=== PATIENT | male | born 1945 | race Caucasian/White ===

== ENCOUNTER 2022-07-02 06:30 | Day surgery (SDC) | payer MEDICARE, BC ==
[~2022-07-02 06:30] MED LIST: Acetaminophen 325 MG Tab PO SCH; Lactated Ringers 1,000 ML IV SCH; Lidocaine 1%/Sod Bicarbonate in NS 8.4% 1 ML Syringe IDERM PRN; Morphine 8 MG, EPINEPHrine 0.3 MG, Cefuroxime 750 MG, Ketorolac 30 MG, Sodium Chloride ... PRN; Pregabalin 25 MG Cap PO SCH; oxyCODONE ER 10 MG TAB.ER PO SCH
[2022-07-02] MEDS ORDERED: Tranexamic Acid 1,000 MG/10 ML Vial ONE (07:09)
[2022-07-02] MEDS ORDERED: Vancomycin 1 GM SDV ONE (07:09)
[2022-07-02] MEDS ORDERED: fentaNYL 100 MCG/2 ML SDV IVPUSH PRN (07:27)
[2022-07-02] MEDS ORDERED: Ondansetron 4 MG/2 ML SDV IVPUSH PRN (07:27)
[2022-07-02] MEDS ORDERED: Phenylephrine HCl In 0.9% NaCl 1 MG/10 ML Vial ONE (07:32)
[2022-07-02] MEDS ORDERED: Propofol 200 MG/20 ML SDV ONE (07:32)
[2022-07-02] MEDS ORDERED: Lidocaine 1% 2 ML ONE (07:32)
[2022-07-02] MEDS ORDERED: fentaNYL 100 MCG/2 ML SDV ONE (07:33)
[2022-07-02] MEDS ORDERED: Midazolam 1 MG/ML 2 ML SDV ONE (07:33)
[2022-07-02] MEDS ORDERED: ceFAZolin 2 GM Vial ONE (07:33)
[2022-07-02] MEDS ORDERED: EPINEPHrine 1 MG/ML SDV ONE (07:46)
[2022-07-02] MEDS ORDERED: Ropivacaine 0.5% 5 MG/ML 30 ML SDV ONE (07:46)
[2022-07-02] MEDS ORDERED: Sodium Chloride 0.9% 10 ML Syringe FLUSH SCH (09:00)
[2022-07-02] MEDS ORDERED: Acetaminophen/HYDROcodone 325-5 MG Tab PO SCH (11:40)
[2022-07-02 13:47] VITALS: BP 131/79; PULSE 73
== END 2022-07-02 13:29 | disposition home or self-care (01) ==
LOC: JD.SDS 06:30
PROVIDERS: ATTEND Orthopaedic Surgery
DX: M17.12 Unilateral primary osteoarthritis, left knee (principal); K21.9 Gastro-esophageal reflux disease without esophagitis; E78.5 Hyperlipidemia, unspecified; I11.0 Hypertensive heart disease with heart failure; I50.22 Chronic systolic (congestive) heart failure; I25.10 Atherosclerotic heart disease of native coronary artery without angina pectoris; E66.9 Obesity, unspecified; I25.2 Old myocardial infarction; Z79.899 Other long term (current) drug therapy; Z68.27 Body mass index [BMI] 27.0-27.9, adult; Z96.651 Presence of right artificial knee joint
CPT/HCPCS: 0055T; 27447; 64447; 73560; 97110; 97116; 97161; A9270; C1713; C1776; J0171; J0690; J0697; J1885; J2250; J2270; J2795; J3010; J3370; J7120; 01402; 64450; J2704; J3490

== ENCOUNTER 2023-03-21 05:50 | Day surgery (SDC) | payer MEDICARE, BC ==
[~2023-03-21 05:50] MED LIST changes: -Acetaminophen 325 MG Tab PO SCH; -Lidocaine 1%/Sod Bicarbonate in NS 8.4% 1 ML Syringe IDERM PRN; -Morphine 8 MG, EPINEPHrine 0.3 MG, Cefuroxime 750 MG, Ketorolac 30 MG, Sodium Chloride ... PRN; -Pregabalin 25 MG Cap PO SCH; +Sodium Chloride 0.9% 10 ML Syringe FLUSH PRN; +Sodium Chloride 0.9% 10 ML Syringe FLUSH SCH; -oxyCODONE ER 10 MG TAB.ER PO SCH
[2023-03-21] MEDS ORDERED: Bupivacaine 0.25% 10 ML SDV ONE (06:21)
[2023-03-21] MEDS ORDERED: Lidocaine 1% 10 ML MDV ONE (06:21)
[2023-03-21] MEDS ORDERED: Lactated Ringers 1,000 ML IV SCH (06:30)
[2023-03-21] MEDS ORDERED: Propofol 200 MG/20 ML SDV ONE (06:39)
[2023-03-21] MEDS ORDERED: fentaNYL 100 MCG/2 ML SDV ONE (06:39)
[2023-03-21] MEDS ORDERED: Midazolam 1 MG/ML 2 ML SDV ONE (06:39)
[2023-03-21] MEDS ORDERED: Lidocaine 2% 5 ML SDV ONE (06:39)
[2023-03-21] MEDS ORDERED: ceFAZolin 2 GM Vial ONE (07:20)
[2023-03-21] MEDS ORDERED: fentaNYL 100 MCG/2 ML SDV IVPUSH PRN (07:32)
[2023-03-21] MEDS ORDERED: HYDROmorphone 0.5 MG/0.5 ML Syringe IVPUSH PRN (07:32)
[2023-03-21] MEDS ORDERED: Ondansetron 4 MG/2 ML SDV IVPUSH PRN (07:32)
[2023-03-21 12:54] VITALS: BP 115/75; PULSE 59
== END 2023-03-21 08:33 | disposition home or self-care (01) ==
LOC: JD.SDS 05:50
PROVIDERS: ATTEND Orthopaedic Surgery
DX: G56.01 Carpal tunnel syndrome, right upper limb (principal); G56.10 Other lesions of median nerve, unspecified upper limb; M19.91 Primary osteoarthritis, unspecified site; I25.10 Atherosclerotic heart disease of native coronary artery without angina pectoris; K21.9 Gastro-esophageal reflux disease without esophagitis; I11.0 Hypertensive heart disease with heart failure; I50.22 Chronic systolic (congestive) heart failure; E78.2 Mixed hyperlipidemia; R73.9 Hyperglycemia, unspecified; I35.0 Nonrheumatic aortic (valve) stenosis; E66.9 Obesity, unspecified; Z68.27 Body mass index [BMI] 27.0-27.9, adult; Z90.49 Acquired absence of other specified parts of digestive tract; Z95.5 Presence of coronary angioplasty implant and graft; Z79.899 Other long term (current) drug therapy; Z79.82 Long term (current) use of aspirin
CPT/HCPCS: 01810; 99100; J0690; J2250; J2704; J3010; J3490; J7120

== ENCOUNTER 2024-01-06 19:28 | Emergency (ER) | payer MEDICARE, BC ==
[2024-01-06 20:22] LABS: BASE EXCESS VENOUS 1.7 (-4.0-2.0); BICARBONATE,VENOUS 26.7 meq/L (22-26); O2 SATURATION VENOUS 61.7; PCO2 VENOUS 45.2 mmHg (41-51); PH,VENOUS 7.39 (7.30-7.40)
[2024-01-06 20:48] LABS: BASOPHILS PERCENT AUTO 0.3 % (0.0-1.0); EOSINOPHILS ABSOLUTE AUTO 0.1 K/mm3 (0.0-0.4); EOSINOPHILS PERCENT AUTO 0.8 % (0.0-6.0); HEMATOCRIT 43.4 % (42.0-52.0); HEMOGLOBIN 13.9 gm/dl (14.0-18.0); IMMATURE GRAN ABSOLUTE AUTO 0.09 K/mm3 (0.00-0.05); IMMATURE GRAN PERCENT AUTO 0.6 % (0.0-0.4); LYMPHOCYTES ABSOLUTE AUTO 1.2 K/mm3 (1.0-4.8); LYMPHOCYTES PERCENT AUTO 7.9 % (24.0-44.0); MEAN CORPUSCULAR HEMOGLOBIN 28.3 pg (28.0-32.0); MEAN CORPUSCULAR VOLUME 88.2 fl (83.0-99.0); MONOCYTES PERCENT AUTO 6.8 % (0.0-8.0); NEUTROPHILS ABSOLUTE AUTO 12.2 K/mm3 (1.8-7.7); NEUTROPHILS PERCENT AUTO 83.6 % (41.0-71.0); PLATELET COUNT,PLT 227 K/mm3 (150-400); RED BLOOD CELL COUNT 4.92 M/mm3 (4.52-5.90); WHITE BLOOD CELL COUNT,WBC 14.65 K/mm3 (3.9-11.3)
[2024-01-06 21:16] LABS: A/G RATIO 1.2 (1-2); ALBUMIN 3.5 g/dl (3.4-5.0); ANION GAP 10.4 (5-15); BILIRUBIN TOTAL 0.3 mg/dL (0.2-1.0); BUN/CREATININE RATIO 15.5 (14-18); CALCIUM 8.9 mg/dL (8.5-10.1); CREATININE 1.1 mg/dL (0.7-1.3); EST CRCL DRUG DOSING (CG) 67.22 mL/min; POTASSIUM,K 4.4 mEq/L (3.5-5.1); PROTEIN TOTAL,TP 6.5 g/dl (6.4-8.2)
[2024-01-07 01:45] VITALS: BP 132/91; PULSE 66
== END 2024-01-07 01:35 | disposition home or self-care (01) ==
LOC: JD.ED 19:28
DX: I35.0 Nonrheumatic aortic (valve) stenosis (principal); I11.0 Hypertensive heart disease with heart failure; I50.9 Heart failure, unspecified; M19.90 Unspecified osteoarthritis, unspecified site; E66.9 Obesity, unspecified; Z79.82 Long term (current) use of aspirin; Z79.899 Other long term (current) drug therapy; Z90.49 Acquired absence of other specified parts of digestive tract; Z68.27 Body mass index [BMI] 27.0-27.9, adult
CPT/HCPCS: 36415; 80053; 82803; 84484; 85025; 93005; 99284

== ENCOUNTER 2024-08-19 08:39 | Day surgery (SDC) | payer MEDICARE, BC ==
[~2024-08-19 08:39] MED LIST changes: -Lactated Ringers 1,000 ML IV SCH
[2024-08-19] MEDS: Lactated Ringers 1,000 ML IV SCH (09:00)
[2024-08-19] MEDS ORDERED: Lidocaine 2% 5 ML SDV ONE (09:45)
[2024-08-19] MEDS ORDERED: propofoL 500 MG/50 ML 50 ML ONE (09:45)
[2024-08-19] MEDS ORDERED: Sodium Chloride 0.9% 100 ML ONE (10:21)
[2024-08-19] MEDS ORDERED: Phenylephrine 1% 10 MG/ML SDV ONE (10:22)
[2024-08-19] MEDS ORDERED: Propofol 200 MG/20 ML SDV ONE (10:37)
[2024-08-19] MEDS ORDERED: Lactated Ringers 1,000 ML ONE (10:55)
[2024-08-19 13:48] VITALS: BP 120/83; PULSE 80
== END 2024-08-19 12:30 | disposition home or self-care (01) ==
LOC: JD.SDS 08:39
PROVIDERS: ATTEND Surgery
DX: D64.9 Anemia, unspecified (principal); D12.5 Benign neoplasm of sigmoid colon; D12.0 Benign neoplasm of cecum; D12.2 Benign neoplasm of ascending colon; D12.3 Benign neoplasm of transverse colon; D12.4 Benign neoplasm of descending colon; D12.8 Benign neoplasm of rectum; K63.5 Polyp of colon; K21.00 Gastro-esophageal reflux disease with esophagitis, without bleeding; K29.50 Unspecified chronic gastritis without bleeding; B96.81 Helicobacter pylori [H. pylori] as the cause of diseases classified elsewhere; K29.80 Duodenitis without bleeding; K57.30 Diverticulosis of large intestine without perforation or abscess without bleeding; K44.9 Diaphragmatic hernia without obstruction or gangrene; K64.8 Other hemorrhoids; K64.4 Residual hemorrhoidal skin tags; I25.10 Atherosclerotic heart disease of native coronary artery without angina pectoris; I48.0 Paroxysmal atrial fibrillation; I11.0 Hypertensive heart disease with heart failure; I50.22 Chronic systolic (congestive) heart failure; E78.00 Pure hypercholesterolemia, unspecified; Z95.5 Presence of coronary angioplasty implant and graft; Z79.01 Long term (current) use of anticoagulants; Z79.899 Other long term (current) drug therapy
CPT/HCPCS: 43239; 45380; 45385; J2003; J2371; J2704; J7120; 00813; 99100